=== PATIENT | female | born 1965 | race Caucasian/White ===

== ENCOUNTER → 2020-02-06 12:48 | Outpatient (CLI) | payer OTHER, SELFPAY ==
--- NOTE | ~2020-02-06 | XR_ITS ---
XR foot LT min 3V DATE: 02/06/2020 13:30 INDICATION: Right femur and left foot pain following injury from fall yesterday TECHNIQUE: 4 views COMPARISON: None FINDINGS: There is mild osteoarthritis at the first metatarsophalangeal joint and tarsometatarsal osiris nt area. No fracture or dislocation, periosteal reaction or bone destruction is evident. Plantar calcaneal enthesopathy. IMPRESSION: No fracture or dislocation detected Reviewed, dictated and finalized at location B.
--- NOTE | ~2020-02-06 | XR_ITS ---
XR femur RT min 2V DATE: 02/06/2020 13:30 INDICATION: Right femur left foot pain following injury from fall yesterday TECHNIQUE: AP and lateral views COMPARISON: None FINDINGS: No fracture or dislocation, avascular necrosis or bone destruction. There is tricompartment osteoarthritis at the knee. IMPRESSION: Tricompartment osteophyte is at the right knee No fracture or dislocation Reviewed, dictated and finalized at location B.
== END ==
PROVIDERS: PCP Emergency Medicine; Visit Provider Emergency Medicine
DX: M79.672 Pain in left foot (principal); M17.11 Unilateral primary osteoarthritis, right knee
CPT/HCPCS: 73552; 73630

== ENCOUNTER 2020-07-09 15:54 | Outpatient (CLI) | payer OTHER, SELFPAY ==
--- NOTE | ~2020-07-09 | XR_ITS ---
EXAMINATION: XR foot RT min 3V DATE: 07/09/2020 16:25 INDICATION: 2 weeks of right heel pain TECHNIQUE: Dorsoplantar, two oblique and lateral views of the affected foot were obtained. COMPARISON: None. FINDINGS: Bone alignment is normal. No fracture. Polyarticular osteoarthritis, severe at the first metatarsopha langeal joint, moderate at the second and third tarsal metatarsal joints and mild at several addition al joints in the mid and forefoot. Moderate-sized plantar calcaneal spur. No right ankle joint effusi on. Multiple small phleboliths versus heterotopic ossicles in the soft tissues along the distal lower leg. IMPRESSION: 1. Moderate-sized plantar calcaneal spur. No acute osseous abnormality. 2. Polyarticular osteoarthritis in the mid and forefoot. Reviewed, dictated and finalized at location A.
== END 2020-07-09 15:55 | disposition home or self-care (01) ==
PROVIDERS: PCP Emergency Medicine; Visit Provider Emergency Medicine
DX: M79.671 Pain in right foot (principal); M77.31 Calcaneal spur, right foot; M19.071 Primary osteoarthritis, right ankle and foot
CPT/HCPCS: 73630

== ENCOUNTER 2020-12-13 10:36 | Outpatient (NON) | payer OTHER, SELFPAY ==
[2020-12-13 22:05] LABS: SARS-CoV-2 RNA PCR Negative
== END 2020-12-13 10:37 ==
PROVIDERS: Family Provider Family Medicine; PCP Emergency Medicine; Visit Provider Emergency Medicine
DX: Z20.822 Contact with and (suspected) exposure to COVID-19 (principal); R43.9 Unspecified disturbances of smell and taste
CPT/HCPCS: C9803; U0003; U0005

== ENCOUNTER 2021-03-16 15:42 | Outpatient (CLI) | payer OTHER, SELFPAY ==
--- NOTE | ~2021-03-16 | US_ITS ---
EXAMINATION: US renal BI DATE: 03/16/2021 16:16 INDICATION: Renal cysts TECHNIQUE: Multiple ultrasound grayscale images of the kidneys were obtained. COMPARISON: None. FINDINGS: The right kidney measures 13.6 x 7.8 x 6.8 cm. The left kidney measures 15.3 x 1.1 x 9.4 cm. The kidn eys demonstrate normal echogenicity. There are large bilateral anechoic renal cysts, the largest on t he left measuring up to 13.6 cm and on the right measuring up to 6.2 cm . There is no hydronephrosis in either kidney. No stones identified. There is diffuse wall thickening of the bladder which is par tially decompressed which limits evaluation. IMPRESSION: 1. Multiple large bilateral renal cysts. No hydronephrosis. 2. Diffuse wall thickening of the bladder which could be due to decompressed state or cystitis either acute or chronic. Correlate with urinalysis. Reviewed, dictated and finalized at location A. IMPRESSION: 1. Multiple large bilateral renal cysts. No hydronephrosis. 2. Diffuse wall thickening of the bladder which could be due to decompressed st ate or cystitis either acute or chronic. Correlate with urinalysis.
== END 2021-03-16 15:43 | disposition home or self-care (01) ==
PROVIDERS: PCP Emergency Medicine; Visit Provider Emergency Medicine
DX: N28.1 Cyst of kidney, acquired (principal); R93.41 Abnormal radiologic findings on diagnostic imaging of renal pelvis, ureter, or bladder
CPT/HCPCS: 76775

== ENCOUNTER → 2021-04-04 11:24 | Outpatient (CLI) | payer OTHER, SELFPAY ==
--- NOTE | ~2021-04-04 | XR_ITS ---
XR foot LT min 3V DATE: 04/04/2021 11:54 INDICATION: Left foot pain TECHNIQUE: 4 views COMPARISON: 02/06/2020 left foot FINDINGS: Prominent plantar calcaneal enthesopathy. Mild osteoarthritis at the first metatarsophalangeal joint. Tarsal-metatarsal osteoarthritis. No fracture, dislocation, periosteal reaction or bone destruction. IMPRESSION: Plantar calcaneal enthesopathy Mild osteoarthritis at the first metatarsophalangeal joint Tarsal metatarsal joint osteoarthritis. Reviewed, dictated and finalized at location A.
--- NOTE | ~2021-04-04 | XR_ITS ---
EXAMINATION: XR nasal bones min 3V DATE: 04/04/2021 11:54 INDICATION: Nose injury. TECHNIQUE: 3 views of the nasal bones were obtained. COMPARISON: None. FINDINGS: Bone alignment is normal. No fracture. IMPRESSION: 1. No fracture. Reviewed, dictated and finalized at location A. IMPRESSION: 1. No fracture.
--- NOTE | ~2021-04-04 | XR_ITS ---
EXAMINATION: XR facial bones min 3V DATE: 04/04/2021 11:53 INDICATION: Nose injury. TECHNIQUE: 4 views of the facial bones were obtained. COMPARISON: None. FINDINGS: Bone alignment is normal. No fracture. There is mucosal thickening in right maxillary sinus and right sphenoid sinus. IMPRESSION: 1. No fracture. Reviewed, dictated and finalized at location A. IMPRESSION: 1. No fracture.
== END ==
PROVIDERS: PCP Emergency Medicine; Visit Provider Emergency Medicine
DX: M19.072 Primary osteoarthritis, left ankle and foot (principal); S09.92XA Unspecified injury of nose, initial encounter
CPT/HCPCS: 70150; 70160; 73630

== ENCOUNTER 2022-01-10 14:58 | Outpatient (CLI) | payer OTHER, SELFPAY ==
--- NOTE | ~2022-01-10 | XR_ITS ---
XR hip LT min 2V, XR hip RT min 2V 01/10/2022 15:59 INDICATION: Hip pain PROCEDURE: 2 views each hip COMPARISON: No prior studies for comparison. FINDINGS: Fracture, dislocation or subluxation is not identified. There is a small bone island in the right femur proximally. The soft tissues appear within normal limits. No foreign bodies are identif ied. There are tubal ligation clips in the pelvis. IMPRESSION: 1: NO ACUTE BONE OR JOINT ABNORMALITY IDENTIFIED. Reviewed, dictated and finalized at location B. 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
--- NOTE | ~2022-01-10 | XR_ITS ---
XR pelvis 1-2V 01/10/2022 15:59 Indication: Hip pain Procedure: AP view of the pelvis Comparison: 01/10/2022 Findings: Pelvic rings are intact. No fracture, subluxation or dislocation. Sacral foramen are symmet felipe. There are tubal ligation clips. Impression: 1: No significant bone or joint abnormality. Reviewed, dictated and finalized at location B. ING CARRIER Impression: 1: No significant bone or joint abnormality.
--- NOTE | ~2022-01-10 | XR_ITS ---
XR femur RT min 2V, XR femur LT min 2V 01/10/2022 15:59 Indication: Leg pain after recent fall Procedure: 2 views of each femur Comparison: No prior studies for comparison. Findings: Moderate osteoarthritis of the knees. Normal mineralization. Small bone island in the proxi mal aspect of the right femur. No fracture, subluxation or dislocation. There is heterotopic ossifica tion superior lateral to the right knee. Impression: 1: Moderate osteoarthritis of the knees. 2: No acute bone or joint abnormality. Reviewed, dictated and finalized at location B. CTOR CARDIAC Impression: 1: Moderate osteoarthritis of the knees. 2: No acute bone or joint abnormality. Impression: 1: Moderate osteoarthritis of the knees. 2: No acute bone or joint abnormality.
--- NOTE | ~2022-01-10 | XR_ITS ---
XR tibia fibula RT 2V 01/10/2022 15:59 Indication: Right leg pain Procedure: 2 views right tibia/fibula Comparison: No prior studies for comparison. Findings: No fracture, subluxation or dislocation. There is moderate osteoarthritis of the right knee . There are benign calcifications in the soft tissues. No focal soft tissue swelling. No foreign bodi es. Normal mineralization. Ankle mortise intact. There is a degenerative calcaneal enthesophyte at th e plantar surface. Impression: 1: Moderate osteoarthritis of the right knee. Reviewed, dictated and finalized at location B. CTOR OF TAX SERVICES Impression: 1: Moderate osteoarthritis of the right knee.
--- NOTE | ~2022-01-10 | XR_ITS ---
XR tibia fibula LT 2V 01/10/2022 15:59 Indication: Left leg pain Procedure: 2 views left tibia/fibula Comparison: No prior studies for comparison Findings: There is moderate osteoarthritis of the left knee. There are phleboliths in the soft tissue s. Normal mineralization. No fracture or traumatic malalignment. Prominent degenerative calcaneal ent hesophyte at the plantar surface.. Impression: 1: Moderate osteoarthritis of the left knee. Reviewed, dictated and finalized at location B. OF MUSIC Impression: 1: Moderate osteoarthritis of the left knee.
[2022-01-10 17:31] LABS: Cholesterol 198 mg/dL (0-200); HDL Direct 42 mg/dL; Triglycerides 100 mg/dL (<150)
[2022-01-10 17:42] LABS: LDL Cholesterol Direct 118 mg/dL
[2022-01-10 18:38] LABS: Free T4 Free Thyroxine 1.29 ng/mL (0.78-2.19); Vitamin D 25 Hydroxy 14.6 ng/mL
== END 2022-01-10 14:59 | disposition home or self-care (01) ==
PROVIDERS: PCP Emergency Medicine; Visit Provider Emergency Medicine
DX: M25.559 Pain in unspecified hip (principal); M54.2 Cervicalgia; M54.50 Low back pain, unspecified; E78.5 Hyperlipidemia, unspecified; M17.0 Bilateral primary osteoarthritis of knee
CPT/HCPCS: 36415; 72170; 73502; 73552; 73590; 80061; 82306; 84439; 84443

== ENCOUNTER 2022-01-17 13:25 | Emergency (ER) | payer OTHER, SELFPAY ==
--- NOTE | ~2022-01-17 | XR_ITS ---
EXAMINATION: XR humerus RT DATE: 01/17/2022 14:56 INDICATION: Right upper arm injury. TECHNIQUE: 2 views of right humerus on 3 radiographs were obtained. COMPARISON: None. FINDINGS: Bone alignment is normal. No fracture. Glenohumeral joint is not well profiled. There is mo derate acromioclavicular joint osteoarthritis. IMPRESSION: 1. Moderate acromioclavicular joint osteoarthritis. Reviewed, dictated and finalized at location A. ER
--- NOTE | ~2022-01-17 | XR_ITS ---
XR shoulder RT min 2V 01/17/2022 14:56 Indication: Right shoulder pain after fall Procedure: 3 views right shoulder Comparison: No prior studies for comparison. Findings: Mild osteoarthritis of the right acromioclavicular joint. No acute fracture, subluxation or dislocation. No significant soft tissue abnormality. No foreign body. Impression: 1: Mild osteoarthritis of the right acromioclavicular joint. Reviewed, dictated and finalized at location A. 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
[2022-01-17 13:32] VITALS: BP 158/90; PULSE 54; RESP 18; TEMP 37.2; O2SAT 98
--- NOTE | 2022-01-17 14:17 | ED.FALL ---
HPI - Fall General Chief Complaint: Fall Stated Complaint: shoulder injury Time Seen by Provider: 01/17/22 14:17 Source: patient and EMS Mode of arrival: EMS Limitations: no limitations History of Present Illness HPI Narrative: Patient is a 56-year-old female with a history of bradycardia, atrial fibrillation presenting for evaluation following a ground-level fall with right shoulder pain. Patient states that she tripped over her own 2 feet and broke her fall with a right outstretched arm. Patient with immediate right upper arm, shoulder pain. States that there is severe pain with any movement. Patient denies any head injury, loss of conscious. She denies neck pain, chest pain, back pain. Patient was able to stand up, denies any lower extremity pain. Denies any pain in her elbow or right wrist. Patient is right-hand dominant. She did receive some pain medication in route, states that pain is still present. Patient denies any prodromal symptoms prior to the fall. No chest pain, lightheadedness, dizziness, palpitations. Related Data Allergies Allergy/AdvReac Type Severity Reaction Status Date / Time bee venom protein (honey bee) Allergy Anaphylaxis Verified 01/17/22 13:32 shellfish derived Allergy Anaphylaxis Verified 01/17/22 13:32 Review of Systems Review of Systems: CONSTITUTIONAL: Denies fever CARDIOVASCULAR: Denies chest pain RESPIRATORY: Denies cough or dyspnea. GASTROINTESTINAL: Denies abdominal pain SKIN: Denies rash MUSCULOSKELETAL: Denies back pain, reports right shoulder pain NEUROLOGIC: Denies headache [facility] Social History Social History (Updated 01/17/22 @ 14:49 by Betty Espinoza MD) Smoking status: Never smoker Alcohol intake: never Substance use: never Living arrangements: with family Gender identity (if verbalized by the patient): Female Exam Narrative: GENERAL: Awake, alert, conversant HEAD: Normocephalic, atraumatic. EYES: PERRLA and EOMI. ENT: Nares clear, no rhinorrhea or epistaxis. Mucous membranes moist. NECK: Supple. CHEST: No respiratory distress, breathing even and non labored, chest is stable to compression without crepitus or pain HEART: Bradycardic rate, sinus rhythm ABDOMEN:Non distended, non tender EXTREMITIES: Patient with intact sensation overlying the deltoid. No step-offs of the clavicle or tenderness to palpation. Patient with decreased range of motion for right abduction secondary to pain. Full flexion-extension at the right elbow, right wrist without limitation. Radial pulse 2+. Intact sensation median, ulnar, radial nerve distribution. C Wpf Developer strength 5/5. SKIN: Warm, dry, no rash. NEURO:No focal deficits. Alert and oriented x3 Course Vital Signs Vital signs: Vital Signs Temperature 37.2 C 01/17/22 13:32 Pulse Rate 54 L 01/17/22 13:32 Respiratory Rate 18 01/17/22 13:32 Blood Pressure 158/90 H 01/17/22 13:32 Pulse Oximetry 98 01/17/22 13:32 Temperature 37.2 C 01/17/22 13:32 Pulse Rate 52 L 01/17/22 15:12 Respiratory Rate 14 01/17/22 15:12 Blood Pressure 156/74 H 01/17/22 15:12 Pulse Oximetry 100 01/17/22 15:12 MDM - Fall MDM Narrative Medical decision making narrative: Patient presented for evaluation of fall on outstretched hand with pain in the right shoulder right upper extremity. Patient is neurovascularly intact at the time of assessment, intact sensation median, ulnar, radial nerve distribution, quality coordinator strength 5/5. Decreased range of motion secondary to pain. Intact sensation overlying the deltoid. No squaring off of the shoulder. Imaging is reassuring. No evidence of dislocation or fracture. There is present. Patient will remain with the sling given she is so symptomatic with pain. Advise repeat imaging within the next 7 to 10 days and patient will be given follow-up with orthopedic surgery. No other injuries found at time of reassessment. No headache pain, cervical pain, upper or lower back pain. No lower extremity pain at
[2022-01-17] MEDS: MORPHINE SULFATE (*CRX) 4 MG/ML INJ IV PUSH (15:09)
[2022-01-17 15:12] VITALS: BP 156/74; PULSE 52; RESP 14; O2SAT 100
[2022-01-17 16:41] VITALS: BP 155/91; PULSE 52; RESP 18; O2SAT 98
== END 2022-01-17 16:40 | disposition home or self-care (01) ==
PROVIDERS: Emergency Provider Emergency Medicine; PCP Emergency Medicine
DX: S46.911A Strain of unspecified muscle, fascia and tendon at shoulder and upper arm level, right arm, initial encounter (principal); W01.0XXA Fall on same level from slipping, tripping and stumbling without subsequent striking against object, initial encounter; I48.91 Unspecified atrial fibrillation
CPT/HCPCS: 73030; 73060; 96374; 99284; J2270

== ENCOUNTER 2022-05-29 14:36 | Outpatient (CLI) | payer OTHER, SELFPAY ==
--- NOTE | ~2022-05-29 | US_ITS ---
EXAMINATION:US venous doppler LE RT INDICATION:Right leg swelling TECHNIQUE: Multiple grayscale, color flow and Doppler images of the right lower extremity deep venous systems were obtained and reviewed. COMPARISON:No prior studies for comparison. FINDINGS: The common femoral, superficial femoral and popliteal veins demonstrate normal respiratory variation, augmentation and compressibility. Color flow is also seen within the peroneal, greater sa phenous and profunda veins. There is deep venous thrombosis of the right posterior tibial vein. IMPRESSION: 1: Deep venous thrombosis of the right posterior tibial vein. The patient will be held in radiology department until the patient's physician is contacted with the results. Reviewed, dictated and finalized at location A.
[2022-05-29 17:08] LABS: Hematocrit 38.5 % (37.0-47.0); Hemoglobin 12.3 g/dL (12.0-15.0); Mean Corpuscular HGB Conc 31.9 g/dl (32-36); Mean Corpuscular Volume 87.7 fl (80-100); Mean Platelet Volume 9.8 fl (7.4-10.4); Platelet Count Result 300 k/mm3 (150-375); Red Blood Count 4.39 M/mm3 (4.2-5.4); White Blood Count 6.8 K/mm3 (4.5-10.0)
[2022-05-29 17:10] LABS: Appearance Urine Clear (Clear); Bilirubin Urine Negative (Negative); Blood Urine Negative (Negative); Color Urine Yellow (Yellow); Glucose Urine UA Negative (Negative); Ketones Urine Trace mg/dL (Negative); Leukocyte Esterase Ur Trace LEU/UL (NEGATIVE); Nitrate Urine Negative (Negative); Protein Urine Negative (Negative); Specific Grav Ur >= 1.030 (1.001-1.035); Urobilinogen Urine 0.2 mg/dL (<2.0); pH Urine 5.5 (5.0-9.0)
[2022-05-29 17:15] LABS: Bacteria Urine Trace /hpf; Mucus Urine Moderate /lpf; Squamous Epithelial Cell Urine Few /hpf (Few)
[2022-05-29 17:18] LABS: Alanine Aminotransferase 12 U/L (6-35); Alkaline Phosphatase 99 U/L (38-126); Anion Gap 4 mmol/L (8-16); Aspartate Amino Transferase 18 U/L (14-36); Bilirubin,Total 0.4 mg/dL (0.2-1.3); Blood Urea Nitrogen 20 mg/dL (7-17); Calcium 8.8 mg/dL (8.4-10.2); Carbon Dioxide 28 mmol/L (22-30); Chloride 107 mmol/L (98-107); Estimated Glomerular Filt Rate > 60; Glucose 94 mg/dL (65-110); Potassium 3.9 mmol/L (3.4-5.0); Sodium 139 mmol/L (137-145)
[2022-05-29 17:23] LABS: Add Urine Microscopic? YES
[2022-05-29 18:05] LABS: Rheumatoid Factor < 8.6 IU/ML (<12)
[2022-05-29 18:15] LABS: Erythrocyte Sedimentation Rate 27 mm/hr (0-20)
[2022-05-29 18:19] LABS: Free T4 Free Thyroxine 1.07 ng/mL (0.78-2.19)
== END 2022-05-29 14:37 | disposition home or self-care (01) ==
PROVIDERS: PCP Emergency Medicine; Visit Provider Emergency Medicine
DX: I10 Essential (primary) hypertension (principal); M79.89 Other specified soft tissue disorders; I82.441 Acute embolism and thrombosis of right tibial vein
CPT/HCPCS: 36415; 80053; 81001; 84439; 84443; 85027; 85652; 86038; 86430; 93971

== ENCOUNTER → 2022-05-29 22:02 | Emergency (ER) | payer OTHER, SELFPAY ==
[2022-05-29 22:12] VITALS: BP 171/95; PULSE 54; RESP 17; TEMP 36.9; O2SAT 99
--- NOTE | 2022-05-29 23:23 | ED.EXTPRO ---
HPI - Extremity Problem General Chief complaint: Extremity Problem,Nontraumatic Stated complaint: blood clot R leg Time Seen by Provider: 05/29/22 23:19 Source: patient History of Present Illness HPI Narrative: Patient referred by the primary care doctor for her diagnosis of DVT. Patient reports she had intermittent right lower extremity swelling follow-up with her primary care doctor who did an outpatient ultrasound patient was found to be DVT and was referred to the ER for further evaluation. Patient denies any recent travel anywhere prior history of DVTs she had surgery back in March but denies any other recent surgeries or procedures. Denies any chest pain or shortness of breath. Related Data Allergies Allergy/AdvReac Type Severity Reaction Status Date / Time bee venom protein (honey bee) Allergy Anaphylaxis Verified 05/29/22 22:15 shellfish derived Allergy Anaphylaxis Verified 05/29/22 22:15 Review of Systems Review of Systems: CONSTITUTIONAL: Denies fever, chills, or sweats. EYES: Denies visual changes, redness, or discharge. ENT: Denies rhinorrhea, congestion, sore throat, or otalgia. CARDIOVASCULAR: Denies chest pain, palpitations, or edema. RESPIRATORY: Denies cough or dyspnea. GASTROINTESTINAL: Denies abdominal pain, nausea, vomiting, or diarrhea. GENITOURINARY: Denies dysuria or hematuria. SKIN: Denies rash or itching. MUSCULOSKELETAL: Denies back pain, or myalgia. NEUROLOGIC: Denies headache, numbness, dizziness, or weakness. PSYCHIATRIC: Denies anxiety or depression. All systems reviewed & are unremarkable except as noted in HPI and below PMFSH Social History Social History Smoking status: Never smoker Alcohol intake: never Substance use: never Gender identity (if verbalized by the patient): Female Exam Narrative: GENERAL: Well-appearing, well-nourished, and in no acute distress. HEAD: Normocephalic, atraumatic. EYES: PERRLA and EOMI. ENT: Nares clear, no rhinorrhea or epistaxis. Mucous membranes moist. NECK: Supple. No masses. No JVD EXTREMITIES: Normal range of motion. SKIN: Warm, dry, no rash. NEURO: No focal deficits. Alert and oriented x3. PSYCH: Normal mood and affect. Course Vital Signs Vital signs: Vital Signs Temperature 36.9 C 07/11/22 22:12 Pulse Rate 54 L 05/29/22 22:12 Respiratory Rate 17 05/29/22 22:12 Blood Pressure 171/95 H 05/29/22 22:12 Pulse Oximetry 99 05/29/22 22:12 Oxygen Delivery Room Air 05/29/22 22:12 Temperature 36.9 C 05/29/22 22:12 Pulse Rate 54 L 05/29/22 22:12 Respiratory Rate 17 05/29/22 23:55 Blood Pressure 171/95 H 05/29/22 22:12 Pulse Oximetry 99 05/29/22 22:12 Oxygen Delivery Room Air 05/29/22 22:12 MDM - Extremity (Nontraumatic) MDM Narrative Medical decision making narrative: H&P as above, vss, pt looks clinically well, exam reassuring, labs clinically unremarkable, patient imaging reviewed and showed DVT, additional labs/img considered, symptomatic relief available as needed, on reevaluation pt continues to looks clinically well. Suspect DVT, dns PE, dissection, compartment syndrome plan to tx/monitor as op w/ pcm f/u findings/plan discussed with pt, pt agree/comfortable with plan, return precautions given Discharge Plan Discharge Clinical Impression: DVT (deep venous thrombosis) Qualifiers: DVT location: lower extremity Affected thrombotic vein of extremity: unspecified vein of extremity Chronicity: acute Laterality: right Qualified Code(s): I82.401 - Acute embolism and thrombosis of unspecified deep veins of right lower extremity Patient Disposition: Home, Self-Care Condition: Improved Instructions: Antibiotic Form, Rivaroxaban (By mouth), Deep Vein Thrombosis (ED) Additional Instructions: Please return if your symptoms worsen or fail to improve. If you develop a fever, can not eat/drink anything or if you have any other concerns. You will li
[2022-05-29] MEDS: RIVAROXABAN 15 MG TABLET PO (23:47)
[2022-05-29 23:55] VITALS: RESP 17
== END | disposition home or self-care (01) ==
PROVIDERS: Emergency Provider Emergency Medicine; PCP Emergency Medicine
DX: I82.401 Acute embolism and thrombosis of unspecified deep veins of right lower extremity (principal)
CPT/HCPCS: 36415; 80053; 81001; 84439; 84443; 85027; 85652; 86038; 86430; 93971; 99283; A9270

== ENCOUNTER 2022-08-28 10:29 | Outpatient (CLI) | payer OTHER, SELFPAY ==
--- NOTE | ~2022-08-28 | US_ITS ---
EXAMINATION: US venous doppler LE RT DATE: 08/28/2022 11:15 INDICATION: Acute deep venous thrombosis of the tibial veins at the right lower limb TECHNIQUE: Grayscale ultrasound images without and with compression and Doppler ultrasound images of the right lower extremity veins were obtained. COMPARISON: 05/29/2022 FINDINGS: The visualized portions of right common femoral vein, profunda (deep) femoral vein, femoral vein, pop liteal vein, peroneal trunk, posterior tibial veins, peroneal veins, gastrocnemius vein and greater s aphenous vein outflow are patent. IMPRESSION: 1. No deep venous thrombosis in the right lower limb. Reviewed, dictated and finalized at location B.
== END 2022-08-28 10:30 | disposition home or self-care (01) ==
PROVIDERS: PCP Emergency Medicine; Visit Provider Internal Medicine Hematology & Oncology
DX: I82.441 Acute embolism and thrombosis of right tibial vein (principal)
CPT/HCPCS: 93971

== ENCOUNTER 2022-09-12 13:36 | Outpatient (CLI) | payer OTHER, SELFPAY ==
[2022-09-16 05:10] LABS: Lupus dRVVT Screen 33 sec (<=45); PTT-LA Screen 32 sec (<=40)
[2022-09-17 15:55] LABS: Homocysteine 9.5 umol/L (<10.4)
[2022-09-22 00:46] LABS: Factor V (Leiden) Mutation NEGATIVE
== END 2022-09-12 13:37 | disposition home or self-care (01) ==
LOC: ANHLAB 13:39
PROVIDERS: PCP Emergency Medicine; Visit Provider Internal Medicine Hematology & Oncology
DX: I82.441 Acute embolism and thrombosis of right tibial vein (principal)
CPT/HCPCS: 36415; 81240; 81241; 83090; 85301; 85303; 85306; 85613; 85730; 86146

== ENCOUNTER 2023-04-03 13:15 | Outpatient (CLI) | payer OTHER, SELFPAY ==
--- NOTE | ~2023-04-03 | US_ITS ---
EXAMINATION:US venous doppler LE RT INDICATION:Right leg pain for weeks. History of DVT. TECHNIQUE: Multiple grayscale, color flow and Doppler images of the right lower extremity deep venous systems were obtained and reviewed. COMPARISON:08/28/2022 FINDINGS: The common femoral, superficial femoral and popliteal veins demonstrate normal respiratory variation, augmentation and compressibility. Color flow is also seen within the posterior tibial, pe roneal, greater saphenous and profunda veins. IMPRESSION: 1: No lower extremity deep venous thrombosis. Reviewed, dictated and finalized at location L.
== END 2023-04-03 13:16 | disposition home or self-care (01) ==
PROVIDERS: PCP Emergency Medicine; Visit Provider Internal Medicine Hematology & Oncology
DX: I82.441 Acute embolism and thrombosis of right tibial vein (principal)
CPT/HCPCS: 93971

== ENCOUNTER 2023-12-05 14:08 | Emergency (ER) | payer OTHER, SELFPAY ==
[2023-12-05 14:22] VITALS: BP 135/92; PULSE 78; RESP 16; TEMP 37; O2SAT 99
--- NOTE | 2023-12-05 14:45 | ED.URI ---
HPI - URI/Sore Throat General Chief Complaint: Upper Respiratory Infection Stated Complaint: fever,cough,throat pain Time Seen by Provider: 12/05/23 14:45 Source: patient Mode of arrival: ambulatory Limitations: no limitations History of Present Illness HPI Narrative: 58 yo F presents with c/o congestion, cough, sore throat, headache, bodyaches, fatigue, fever for 3 days. Taking OTC cold and flu to treat symptoms. Denies CP and SOB. No N/v/d. All systems reviewed and negative except as noted above. Related Data Home Medications Medication Instructions Recorded Confirmed albuterol sulfate 90 mcg/actuation 2 puff inhalation PRN PRN Wheezing 12/05/23 12/05/23 aerosol inhaler atorvastatin 10 mg tablet 10 mg PO HS 12/05/23 12/05/23 dorzolamide 2 % eye drops 1 drp LEFT EYE TID 12/05/23 12/05/23 ergocalciferol (vitamin D2) 1,250 1,250 mcg PO WEEKLY 12/05/23 12/05/23 mcg (50,000 unit) capsule famotidine 40 mg tablet 40 mg PO HS 12/05/23 12/05/23 ketorolac 0.5 % eye drops 1 drp LEFT EYE TID 12/05/23 12/05/23 losartan 100 mg tablet 100 mg PO DAILY 12/05/23 12/05/23 omeprazole 40 mg capsule,delayed 40 mg PO AC 12/05/23 12/05/23 release prednisolone acetate 1 % eye 1 drp ophthalmic (eye) TID 12/05/23 12/05/23 drops,suspension sertraline 50 mg tablet 50 mg PO DAILY 12/05/23 12/05/23 Allergies Allergy/AdvReac Type Severity Reaction Status Date / Time bee venom protein (honey bee) Allergy Anaphylaxis Verified 12/05/23 14:31 shellfish derived Allergy Anaphylaxis Verified 12/05/23 14:31 Review of Systems Review of Systems: CONSTITUTIONAL: reports fever, chills, or sweats. EYES: Denies visual changes, redness, or discharge. ENT: Reports rhinorrhea, congestion, sore throat. Denies otalgia. CARDIOVASCULAR: Denies chest pain, palpitations, or edema. RESPIRATORY: reports cough. Denies dyspnea. GASTROINTESTINAL: Denies abdominal pain, nausea, vomiting, or diarrhea. GENITOURINARY: Denies dysuria or hematuria. SKIN: Denies rash or itching. MUSCULOSKELETAL: Denies back pain, joint pain, or myalgia. NEUROLOGIC: Denies headache, numbness, or weakness. PSYCHIATRIC: Denies anxiety or depression. All other systems reviewed are negative, except as documented in HPI. PMFSH Social History Social History Smoking status: Never smoker Alcohol intake: never Substance use: never Living arrangements: with family Gender identity (if verbalized by the patient): Female Comments At time of signature, agree with nursing past medical, surgical, social and family history. There is no relevant family history pertinent to the presenting complaint. Exam Narrative: GENERAL: This is a well-nourished, well-developed patient, patient ill-appearing but no acute distress. HEAD: normocephalic, atraumatic. EYES: PERRL. Sclera clear/white. Vision is grossly intact. EARS: External ears normal, auditory canals clear and without drainage, TMs normal without perforation. Hearing grossly intact. NOSE: External nose normal with Clear nasal drainage, erythema to both nares THROAT: Mucous membranes moist, erythema postnasal drainage NECK: Neck supple, non-tender without lymphadenopathy, masses or thyromegaly. CARDIOVASCULAR: Regular rate and rhythm without murmurs, gallops, or rubs. RESPIRATORY: Clear to auscultation. Breath sounds equal bilaterally. No wheezes, rales, or rhonchi. SKIN: warm, Dry, intact with no suspicious lesions or rash, good texture and turgor. NEURO: awake, alert, and oriented to person, place and time. There were no obvious focal neurologic abnormalities. EXTREMITIES: No joint tenderness, effusion, or edema noted. Course Course Level of Care: Express Care Visit Vital Signs Vital signs: Vital Signs Temperature 37.0 C 12/05/23 14:22 Pulse Rate 78 12/05/23 14:22 Respiratory Rate 16 12/05/23 14:22 Blood Pressure 135/92 H 12/05/23 14:2
== END 2023-12-05 15:00 | disposition home or self-care (01) ==
PROVIDERS: Emergency Provider Nurse Practitioner Family; PCP Emergency Medicine
DX: J10.1 Influenza due to other identified influenza virus with other respiratory manifestations (principal); Z20.822 Contact with and (suspected) exposure to COVID-19; E78.00 Pure hypercholesterolemia, unspecified; I10 Essential (primary) hypertension; J45.909 Unspecified asthma, uncomplicated; H35.30 Unspecified macular degeneration; F41.9 Anxiety disorder, unspecified; F32.A Depression, unspecified
CPT/HCPCS: 87426; 87804; 99213; G0463

== ENCOUNTER 2023-12-12 08:39 | Emergency (ER) | payer OTHER, SELFPAY ==
[2023-12-12] VITALS (7 sets, daily range): BP systolic 137–161; BP diastolic 63–99; PULSE 44–56; RESP 18–20; TEMP 36.5; O2SAT 96–100
--- NOTE | ~2023-12-12 | CT_ITS ---
EXAMINATION: CT brain wo con DATE: 12/12/2023 12:06 INDICATION: Headache and vertigo TECHNIQUE: Computed tomography (CT) of the head was performed without intravenous contrast. The dose- length product was 605.33 mGy-cm. Automated exposure control and iterative reconstruction technique w ere employed. COMPARISON: None FINDINGS: No acute intracranial hemorrhage, infarction, mass or mass effect. No ventriculomegaly or m idline shift. Basilar cisterns are patent. There is mucosal thickening of the maxillary and ethmoid s inuses. Mastoids are pneumatized. No depressed skull fractures. IMPRESSION: 1. No acute intracranial abnormality. Reviewed, dictated and finalized at location B. [place] [employer]
--- NOTE | 2023-12-12 08:43 | ECG_ITS ---
Measurements Intervals [place] Rate: 49 P: 47 WI: 158 QRS: -13 QRSD: 90 T: 9 QT: 450 QTc: 406 Interpretive Statements SINUS BRADYCARDIA VOLTAGE CRITERIA FOR LVH CONSIDER ANTERIOR INFARCT, AGE INDETERMINATE CONSIDER INFERIOR INFARCT, AGE INDETERMINATE ABNORMAL ECG NO PREVIOUS ECG AVAILABLE FOR COMPARISON Electronically Signed On 12-12-2023 8:54:47 BUSINESS PLANNING MANAGER by Endy Castañeda D.O.
[2023-12-12 08:59] LABS: Basophils Percent Auto 0.4 % (0.2-1.2); Eosinophils Absolute Auto 0.1 K/mm3 (0-0.3); Eosinophils Percent Auto 1.9 % (0-4.4); Hematocrit 37.4 % (37.0-47.0); Hemoglobin 11.6 g/dL (12.0-15.0); Immature Granulocyte Absolute 0.05 K/mm3 (0.00-0.031); Immature Granulocyte Percent A 0.7 % (0-0.5); Lymphocytes Percent Auto 21.5 % (18.3-44.2); Mean Corpuscular Hemoglobin 27.1 pg (26-34); Mean Corpuscular Volume 87.4 fl (80-100); Mean Platelet Volume 10.2 fl (7.4-10.4); Monocytes Absolute Auto 0.4 K/mm3 (0.1-0.6); Monocytes Percent Auto 5.2 % (2.6-8.5); Neutrophils Absolute Auto 4.9 K/mm3 (1.3-6.7); Neutrophils Percent Auto 70.3 % (45.5-73.1); Platelet Count Result 272 k/mm3 (150-375); Red Blood Count 4.28 M/mm3 (4.2-5.4); Red Cell Distribution Width 14.4 % (11.5-14.5)
[2023-12-12 09:09] LABS: Alanine Aminotransferase 17 U/L (6-35); Alkaline Phosphatase 80 U/L (38-126); Anion Gap 9 mmol/L (8-16); Aspartate Amino Transferase 18 U/L (14-36); Bilirubin,Total 0.8 mg/dL (0.2-1.3); Blood Urea Nitrogen 19 mg/dL (7-17); Calcium 9.1 mg/dL (8.4-10.2); Carbon Dioxide 27 mmol/L (22-30); Chloride 108 mmol/L (98-107); Estimated CRCL calculation 83 ml/min; Estimated Glomerular Filt Rate > 60; Glucose 103 mg/dL (65-110); Potassium 3.7 mmol/L (3.4-5.0); Sodium 144 mmol/L (137-145)
--- NOTE | 2023-12-12 11:38 | ED.DIZZY ---
HPI - Dizziness General Chief Complaint: Dizziness Stated Complaint: dizzy Time Seen by Provider: 12/12/23 10:54 History of Present Illness HPI Narrative: 58-year-old female presented to the emergency department for evaluation of intermittent lightheaded and dizziness. Patient states proximal attending as though she was diagnosed with influenza B. Patient states since then she has had persistent dizziness lightheadedness. Patient states yesterday she had onset dizziness and describes it as a spinning sensation. Related Data Home Medications Medication Instructions Recorded Confirmed albuterol sulfate 90 mcg/actuation 2 puff inhalation PRN PRN Wheezing 12/05/23 12/05/23 aerosol inhaler atorvastatin 10 mg tablet 10 mg PO HS 12/05/23 12/05/23 dorzolamide 2 % eye drops 1 drp LEFT EYE TID 12/05/23 12/05/23 ergocalciferol (vitamin D2) 1,250 1,250 mcg PO WEEKLY 12/05/23 12/05/23 mcg (50,000 unit) capsule famotidine 40 mg tablet 40 mg PO HS 12/05/23 12/05/23 ketorolac 0.5 % eye drops 1 drp LEFT EYE TID 12/05/23 12/05/23 losartan 100 mg tablet 100 mg PO DAILY 12/05/23 12/05/23 omeprazole 40 mg capsule,delayed 40 mg PO AC 12/05/23 12/05/23 release prednisolone acetate 1 % eye 1 drp ophthalmic (eye) TID 12/05/23 12/05/23 drops,suspension sertraline 50 mg tablet 50 mg PO DAILY 12/05/23 12/05/23 Allergies Allergy/AdvReac Type Severity Reaction Status Date / Time bee venom protein (honey bee) Allergy Anaphylaxis Verified 12/05/23 14:31 shellfish derived Allergy Anaphylaxis Verified 12/05/23 14:31 Review of Systems Review of Systems: All systems reviewed & are unremarkable except as noted in HPI and below PMFSH Social History Social History Smoking status: Never smoker Alcohol intake: never Substance use: never Living arrangements: with family Gender identity (if verbalized by the patient): Female Exam Narrative: APPEARANCE: Well appearing, no pain, no distress, well-nourished. HEAD: normocephalic, atraumatic. EYES: PERRLA/EOMI, conjunctivae clear. NOSE: Normal no drainage NECK: Supple. No adenopathy, no masses. RESPIRATORY: Airway patent, respirations nonlabored. Clear to auscultation bilaterally, no rales, rhonchi, wheezing. CARDIOVASCULAR: Regular rate and rhythm without murmurs rubs or gallops. ABDOMINAL: Soft, nontender, nondistended, normal bowel sounds MUSCULOSKELETAL: Moves all extremities. Strength/ROM intact, No edema, No calf tenderness. NEURO: Alert. Cranial nerves II through XII intact. Neurologically intact, negative Romberg SKIN: Warm, dry. Normal Color PSYCHIATRIC: Normal affect/mood. Course Course Emergency Course: 58-year-old female presenting to the emergency department for evaluation intermittent dizziness. Patient was afebrile with no leukocytosis stable hemoglobin. No acute abnormalities on her CMP. Head CT had no acute abnormalities. Patient's orthostatic vital signs were normal. Patient did feel improved with meclizine. Patient was able to ambulate and feels comfortable with plan for discharge and close follow-up. Patient was encouraged close follow-up with primary care physician. All questions concerns were addressed patient is well-appearing at time of discharge. Vital Signs Vital signs: Vital Signs Temperature 97.7 F 12/12/23 08:40 Pulse Rate 54 L 12/12/23 08:40 Respiratory Rate 18 12/12/23 08:40 Blood Pressure 141/81 H 12/12/23 08:40 Pulse Oximetry 100 12/12/23 08:40 Oxygen Delivery Room Air 12/12/23 08:40 Temperature 97.7 F 12/12/23 08:40 Pulse Rate 44 L 12/12/23 14:16 Respiratory Rate 20 12/12/23 14:16 Blood Pressure 161/94 H 12/12/23 14:16 Pulse Oximetry 100 12/12/23 14:16 Oxygen Delivery Room Air 12/12/23 08:40 MDM - Dizziness Differential Diagnosis Differential diagnosis: Likely benign paroxysmal positional vertigo, orthostatic hypotension, cerebrovas
[2023-12-12] MEDS: MECLIZINE HCL 25 MG TABLET PO (11:39)
[2023-12-12] MEDS: SODIUM CHLORIDE 0.9% IV 1,000 ML 999 ML IV CONT (11:58)
--- NOTE | 2023-12-12 12:01 | PC.NURSE ---
Pt taken to CT at this time
== END 2023-12-12 14:25 | disposition home or self-care (01) ==
PROVIDERS: Emergency Provider Emergency Medicine; PCP Emergency Medicine
DX: R42 Dizziness and giddiness (principal)
CPT/HCPCS: 36415; 70450; 80053; 85025; 93005; 96360; 99284; A9270; J7030

== ENCOUNTER 2024-04-24 08:13 | Outpatient (CLI) | payer OTHER, SELFPAY ==
[2024-04-24 09:10] LABS: Basophils Absolute Auto 0.1 K/mm3 (0.0-0.1); Basophils Percent Auto 0.7 % (0.2-1.2); Eosinophils Absolute Auto 0.2 K/mm3 (0-0.3); Eosinophils Percent Auto 2.4 % (0-4.4); Hematocrit 36.8 % (37.0-47.0); Hemoglobin 11.2 g/dL (12.0-15.0); Immature Granulocyte Absolute 0.06 K/mm3 (0.00-0.031); Immature Granulocyte Percent A 0.8 % (0-0.5); Lymphocytes Absolute Auto 2.07 K/mm3 (0.9-3.2); Lymphocytes Percent Auto 27.7 % (18.3-44.2); Mean Corpuscular HGB Conc 30.4 g/dl (32-36); Mean Corpuscular Hemoglobin 26.5 pg (26-34); Mean Platelet Volume 10.2 fl (7.4-10.4); Monocytes Absolute Auto 0.5 K/mm3 (0.1-0.6); Neutrophils Absolute Auto 4.6 K/mm3 (1.3-6.7); Neutrophils Percent Auto 61.4 % (45.5-73.1); Platelet Count Result 304 k/mm3 (150-375); Red Blood Count 4.23 M/mm3 (4.2-5.4); Red Cell Distribution Width 15.6 % (11.5-14.5); White Blood Count 7.5 K/mm3 (4.5-10.0)
[2024-04-24 09:14] LABS: Appearance Urine Clear (Clear); Bilirubin Urine Negative (Negative); Blood Urine Negative (Negative); Color Urine Yellow (Yellow); Glucose Urine UA Negative (Negative); Ketones Urine Negative (Negative); Leukocyte Esterase Ur Negative LEU/UL (Negative); Nitrate Urine Negative (Negative); Protein Urine Negative (Negative); Specific Grav Ur 1.021 (1.001-1.035); Urobilinogen Urine 0.2 mg/dL (<2.0)
[2024-04-24 09:35] LABS: Add Urine Microscopic? NO
[2024-04-24 09:39] LABS: Albumin Level 3.8 g/dL (3.5-5.1); Anion Gap 5 mmol/L (4-12); Blood Urea Nitrogen 19 mg/dL (7-17); Carbon Dioxide 27 mmol/L (22-30); Chloride 110 mmol/L (98-107); Estimated Glomerular Filt Rate > 60; Glucose 97 mg/dL (65-110); Phosphorus 4.5 mg/dL (2.5-4.5); Potassium 3.6 mmol/L (3.4-5.0); Sodium 142 mmol/L (137-145)
[2024-04-24 10:03] LABS: Creatinine Urine 108.4 mg/dL
[2024-04-24 13:35] LABS: MALB Creatinine Ratio < 5.5 mg/g (0-30); Microalbumin Urine Random < 6.0 mg/L (0-16.7)
== END 2024-04-24 08:14 | disposition home or self-care (01) ==
LOC: ANHLAB 08:15
PROVIDERS: PCP Emergency Medicine; Visit Provider Nurse Practitioner Family
DX: N18.1 Chronic kidney disease, stage 1 (principal)
CPT/HCPCS: 36415; 80069; 81003; 82043; 85025

== ENCOUNTER 2024-08-18 11:11 | Emergency (ER) | payer OTHER, SELFPAY ==
[2024-08-18 11:22] VITALS: BP 134/82; PULSE 73; RESP 16; TEMP 36.6; O2SAT 98
--- NOTE | 2024-08-18 11:35 | ED.URI ---
HPI - URI/Sore Throat General Chief Complaint: Upper Respiratory Infection Stated Complaint: left ear pain/itching,cough,nasal congestion Time Seen by Provider: 08/18/24 11:54 Source: patient and RN notes reviewed Mode of arrival: ambulatory Limitations: no limitations History of Present Illness HPI Narrative: 59-year-old female presents with concern for sneezing, left ear itching, ear pain, cough, nasal congestion. She reports symptoms started Sunday. Reports ear pain started yesterday. MD elicited complaint: cough and nasal congestion Related Data Home Medications Medication Instructions Recorded Confirmed atorvastatin 10 mg tablet 10 mg PO HS 12/05/23 08/18/24 ergocalciferol (vitamin D2) 1,250 1,250 mcg PO WEEKLY 12/05/23 08/18/24 mcg (50,000 unit) capsule famotidine 40 mg tablet 40 mg PO HS 12/05/23 08/18/24 losartan 100 mg tablet 100 mg PO DAILY 12/05/23 08/18/24 omeprazole 40 mg capsule,delayed 40 mg PO AC 12/05/23 08/18/24 release sertraline 50 mg tablet 100 mg PO DAILY 12/05/23 08/18/24 Allergies Allergy/AdvReac Type Severity Reaction Status Date / Time bee venom protein (honey bee) Allergy Anaphylaxis Verified 08/18/24 11:33 shellfish derived Allergy Anaphylaxis Verified 08/18/24 11:33 Review of Systems Review of Systems: CONSTITUTIONAL: Denies malaise, chills, sweats, or fever. EYES: Denies visual changes, redness, or discharge. ENT: Reports rhinorrhea, congestion, otalgia CARDIOVASCULAR: Denies chest pain, palpitations, or edema. RESPIRATORY: Reports cough. Denies dyspnea. GASTROINTESTINAL: Denies abdominal pain, nausea, vomiting, diarrhea SKIN: Denies rash or itching. MUSCULOSKELETAL: Denies myalgia. NEUROLOGIC: Denies headache. All systems reviewed & are unremarkable except as noted in HPI and below PMFSH Social History Social History Smoking status: Never smoker Alcohol intake: never Substance use: never Living arrangements: with family Gender identity (if verbalized by the patient): Female Comments At time of signature, agree with nursing past medical, surgical, social and family history. There is no relevant family history pertinent to the presenting complaint Exam Narrative: GENERAL: Well-appearing, well-nourished, and in no acute distress. HEAD: Normocephalic EYES: PERRLA, conjunctivae clear ENT: Nares clear. Mucous membranes moist. TM pearly yuan with dull light reflex on the right, erythematous bulging on the left; no tragal tenderness. Oropharynx not erythematous without lesions. Tonsils not enlarged and without exudate, no drooling, no hoarseness, no trismus, uvula midline. NECK: Supple. No lymphadenopathy CHEST: Clear to auscultation, breath sounds equal. No wheezing, rhonchi, rales, or stridor. No respiratory distress, speaks in full sentences. HEART: Regular rate and rhythm. No murmur heard. SKIN: Warm, dry, no rash. NEURO: Alert and oriented x3. PSYCH: Normal mood and affect Course Course Emergency Course: Patient is aware of diagnosis, understands and agrees to treatment plan. Anticipatory guidance given. Patient agrees to follow-up as directed and is aware of reasons to seek care at the emergency department. Portions of this record may have been created with voice recognition software Level of Care: Express Care Visit Vital Signs Vital signs: Vital Signs Temperature 97.8 F 08/18/24 11:22 Pulse Rate 73 08/18/24 11:22 Respiratory Rate 16 08/18/24 11:22 Blood Pressure 134/82 08/18/24 11:22 Pulse Oximetry 98 08/18/24 11:22 Oxygen Delivery Room Air 08/18/24 11:22 Temperature 97.8 F 08/18/24 11:22 Pulse Rate 73 08/18/24 11:22 Respiratory Rate 16 08/18/24 11:22 Blood Pressure 134/82 08/18/24 11:22 Pulse Oximetry 98 08/18/24 11:22 Oxygen Delivery Room Air 08/18/24 11:22 Reviewed. MDM - URI/Sore Throat MDM Narrative Medical decision making na
== END 2024-08-18 12:13 | disposition home or self-care (01) ==
PROVIDERS: Emergency Provider Nurse Practitioner; PCP Midwife
DX: H66.92 Otitis media, unspecified, left ear (principal)
CPT/HCPCS: 99213; G0463